=== PATIENT | female | born 1975 | race Caucasian/White ===

== ENCOUNTER 2017-12-23 19:32 | Outpatient (REF) | payer BC, SELFPAY ==
[2017-12-23 20:09] LABS: Anion Gap 11.7 mmol/L (3-11); BUN 13 mg/dL (7-18); CO2 27.3 mmol/L (21.0-32.0); CREATININE 0.64 mg/dL (0.55-1.02); Calcium 9.7 mg/dL (8.5-10.1); Chloride 95 mmol/L (98-107); Glucose 77 mg/dL (70-100); Potassium 3.6 mmol/L (3.5-5.1); Sodium 134 mmol/L (136-145); TSH 3.26 uIU/mL (0.358-3.74)
== END 2017-12-23 19:52 ==
LOC: NCHCN 19:32
PROVIDERS: PCP Physician Assistant Medical; Visit Provider Physician Assistant Medical
DX: R94.6 Abnormal results of thyroid function studies (principal); I10 Essential (primary) hypertension
CPT/HCPCS: 80048; 84443

== ENCOUNTER 2018-12-29 20:31 | Outpatient (REF) | payer BC, SELFPAY ==
[2018-12-29 20:56] LABS: BUN 17 mg/dL (7-18); CREATININE 0.94 mg/dL (0.55-1.02); Calcium 9.5 mg/dL (8.5-10.1); Chloride 97 mmol/L (98-107); Glucose 80 mg/dL (70-100); Potassium 3.8 mmol/L (3.5-5.1); Sodium 136 mmol/L (136-145); TSH 3.13 uIU/mL (0.36-3.74)
== END 2018-12-29 20:51 ==
LOC: NCHCN 20:31
PROVIDERS: PCP Physician Assistant Medical; Visit Provider Physician Assistant Medical
DX: R94.6 Abnormal results of thyroid function studies (principal); I10 Essential (primary) hypertension
CPT/HCPCS: 80048; 84443

== ENCOUNTER 2019-08-01 10:00 | Outpatient (REF) | payer BC, SELFPAY ==
[2019-08-01 20:30] LABS: Hemoglobin A1C 5.9 % (3.8-5.6)
[2019-08-01 20:52] LABS: ALT 32 U/L (14-59); AST 18 U/L (15-37); Albumin 3.9 g/dL (3.4-5.0); Alkaline Phosphatase 76 U/L (46-116); Anion Gap 9.3 mmol/L (3-11); BUN 15 mg/dL (7-18); Bilirubin, Total 0.3 mg/dL (0.2-1.0); CO2 27.7 mmol/L (21.0-32.0); CREATININE 0.77 mg/dL (0.55-1.02); Calcium 8.9 mg/dL (8.5-10.1); Calculated LDL 113 mg/dL (<100); Chloride 100 mmol/L (98-107); Cholesterol 196 mg/dL (<200); Glucose 108 mg/dL (74-106); HDL Cholesterol 38 mg/dL (40-60); Potassium 3.8 mmol/L (3.5-5.1); Sodium 137 mmol/L (136-145); TSH (W/Ref FT4) 2.15 uIU/mL (0.36-3.74); Total Protein 7.1 g/dL (6.4-8.2); Triglyceride 229 mg/dL (<150)
== END 2019-08-01 10:20 ==
LOC: NCHCN 10:00
PROVIDERS: PCP Physician Assistant Medical; Visit Provider Physician Assistant Medical
DX: I10 Essential (primary) hypertension (principal)
CPT/HCPCS: 80053; 80061; 83036; 84443

== ENCOUNTER 2019-09-19 13:27 | Outpatient (REF) | payer BC, SELFPAY ==
[2019-09-19 19:24] LABS: Anion Gap 10.8 mmol/L (3-11); BUN 13 mg/dL (7-18); CO2 28.2 mmol/L (21.0-32.0); Calcium 9.5 mg/dL (8.5-10.1); Chloride 99 mmol/L (98-107); Glucose 126 mg/dL (74-106); Potassium 3.4 mmol/L (3.5-5.1); Sodium 138 mmol/L (136-145)
== END 2019-09-19 13:47 ==
LOC: NCHCN 13:27
PROVIDERS: PCP Physician Assistant Medical; Visit Provider Physician Assistant Medical
DX: I10 Essential (primary) hypertension (principal)
CPT/HCPCS: 80048

== ENCOUNTER 2019-10-11 10:39 | Outpatient (REF) | payer BC, SELFPAY ==
[2019-10-11 19:16] LABS: Anion Gap 10.5 mmol/L (3-11); BUN 16 mg/dL (7-18); CO2 25.5 mmol/L (21.0-32.0); CREATININE 0.74 mg/dL (0.55-1.02); Calcium 9.6 mg/dL (8.5-10.1); Chloride 103 mmol/L (98-107); Glucose 127 mg/dL (74-106); Potassium 3.4 mmol/L (3.5-5.1); Sodium 139 mmol/L (136-145)
[2019-10-11 19:25] LABS: Abs Immature Grans 0.02 10^3/uL (0.0-0.06); Immature Grans % 0.3; Nucleated RBC 0 %; RDW 12.9 % (11.7-14.6)
[2019-10-11 19:26] LABS: Absolute Basophil Count 0.06 10^3/uL (0.0-0.2); Absolute Eosinophil Count 0.11 10^3/uL (0.0-0.7); Absolute Lymphocyte Count 1.78 10^3/uL (1.2-3.4); Absolute Monocyte Count 0.45 10^3/uL (0.1-0.8); Absolute Neutrophil Count 3.61 10^3/uL (1.2-6.7); Eosinophils % 1.8; HCT 44.6 % (36.0-46.0); HGB 14.2 g/dL (11.2-15.7); Lymphocytes % 29.5; MCH 25.6 pg (27.0-33.0); MCHC 31.8 % (32.0-36.0); MCV 80.4 fL (80-95); MPV 11.5 fL (8.0-11.0); Monocytes % 7.5; Neutrophils % 59.9; Platelet Count 352 10^3/uL (130-400); RBC 5.55 10^6/uL (3.93-5.22); RDW-SD 37.1 fL; WBC 6.03 10^3/uL (4.4-10.8)
[2019-10-11 21:37] LABS: ESR 22 mm/hr (0-20)
== END 2019-10-11 10:59 ==
LOC: NCHCN 10:39
PROVIDERS: PCP Physician Assistant Medical; Visit Provider Physician Assistant Medical
DX: R51 Headache (principal)
CPT/HCPCS: 80048; 85652; 85025

== ENCOUNTER 2019-11-14 15:30 | Outpatient (REF) | payer BC, SELFPAY ==
[2019-11-14 20:23] LABS: Anion Gap 12.4 mmol/L (3-11); BUN 20 mg/dL (7-18); CO2 27.6 mmol/L (21.0-32.0); CREATININE 0.76 mg/dL (0.55-1.02); Calcium 9.2 mg/dL (8.5-10.1); Chloride 102 mmol/L (98-107); Glucose 102 mg/dL (74-106); Potassium 3.2 mmol/L (3.5-5.1); Sodium 142 mmol/L (136-145)
[2019-11-14 20:27] LABS: VALPROIC ACID 58.1 ug/mL (50-100)
== END 2019-11-14 15:50 ==
LOC: NCHCN 15:30
PROVIDERS: PCP Physician Assistant Medical; Visit Provider Physician Assistant Medical
DX: E87.1 Hypo-osmolality and hyponatremia (principal); D48.1 Neoplasm of uncertain behavior of connective and other soft tissue; F41.9 Anxiety disorder, unspecified; Z51.81 Encounter for therapeutic drug level monitoring
CPT/HCPCS: 80048; 80164

== ENCOUNTER 2020-01-25 03:19 | Outpatient (CLI) | payer BC, SELFPAY ==
[2020-01-25 14:05] LABS: Hemoglobin A1C 5.4 % (<5.7)
[2020-01-25 14:23] LABS: BUN 15 mg/dL (7-18); Calcium 9.3 mg/dL (8.5-10.1); Chloride 100 mmol/L (98-107); Estimated GFR 38.08 (mL/min/1.73m2); Glucose 89 mg/dL (74-106); Potassium 3.8 mmol/L (3.5-5.1); Sodium 139 mmol/L (136-145)
== END 2020-01-25 03:39 ==
PROVIDERS: PCP Physician Assistant Medical; Visit Provider Physician Assistant Medical
DX: I10 Essential (primary) hypertension (principal); R73.03 Prediabetes; E87.1 Hypo-osmolality and hyponatremia; F41.9 Anxiety disorder, unspecified
CPT/HCPCS: 36415; 80048; 83036

== ENCOUNTER 2020-02-13 02:46 | Outpatient (CLI) | payer BC, SELFPAY ==
[2020-02-13 12:50] LABS: Anion Gap 10.6 mmol/L (3-11); BUN 12 mg/dL (7-18); CO2 24.4 mmol/L (21.0-32.0); Calcium 9.1 mg/dL (8.5-10.1); Chloride 104 mmol/L (98-107); Glucose 115 mg/dL (74-106); Potassium 4.2 mmol/L (3.5-5.1); Sodium 139 mmol/L (136-145)
== END 2020-02-13 03:06 ==
PROVIDERS: PCP Physician Assistant Medical; Visit Provider Physician Assistant Medical
DX: I10 Essential (primary) hypertension (principal); R79.89 Other specified abnormal findings of blood chemistry
CPT/HCPCS: 36415; 80048

== ENCOUNTER 2021-02-12 11:06 | Outpatient (REF) | payer BC, SELFPAY ==
[2021-02-12 12:39] LABS: Hemoglobin A1C 5.7 % (<5.7)
[2021-02-12 12:44] LABS: ALT 24 U/L (14-59); AST 14 U/L (15-37); Albumin 3.9 g/dL (3.4-5.0); Alkaline Phosphatase 98 U/L (46-116); BUN 14 mg/dL (7-18); Bilirubin, Total 0.3 mg/dL (0.2-1.0); CREATININE 0.8 mg/dL (0.55-1.02); Calcium 9.2 mg/dL (8.5-10.1); Calculated LDL 123 mg/dL (<100); Chloride 102 mmol/L (98-107); Cholesterol 190 mg/dL (<200); Glucose 102 mg/dL (74-106); HDL Cholesterol 42 mg/dL (40-60); Potassium 4.8 mmol/L (3.5-5.1); Sodium 138 mmol/L (136-145); Total Protein 7.4 g/dL (6.4-8.2); Triglyceride 129 mg/dL (<150)
== END 2021-02-12 11:07 | disposition home or self-care (01) ==
LOC: NCHCN 11:06
PROVIDERS: PCP Physician Assistant Medical; Visit Provider Physician Assistant Medical
DX: E87.1 Hypo-osmolality and hyponatremia (principal)
CPT/HCPCS: 80053; 80061; 83036

== ENCOUNTER 2021-11-27 21:26 | Outpatient (REF) | payer BC, SELFPAY ==
[2021-11-27 21:42] LABS: ALT 26 U/L (14-59); AST 22 U/L (15-37); Albumin 4.5 g/dL (3.4-5.0); Alkaline Phosphatase 90 U/L (46-116); Anion Gap 11.3 mmol/L (3-11); BUN 11 mg/dL (7-18); Bilirubin, Total 0.3 mg/dL (0.2-1.0); CO2 25.7 mmol/L (21.0-32.0); CREATININE 0.8 mg/dL (0.55-1.02); Calcium 9.7 mg/dL (8.5-10.1); Calculated LDL 130 mg/dL (<100); Chloride 98 mmol/L (98-107); Cholesterol 203 mg/dL (<200); Estimated GFR 93.12 (mL/min/1.73m2); Glucose 86 mg/dL (74-106); HDL Cholesterol 45 mg/dL (40-60); Potassium 3.4 mmol/L (3.5-5.1); Sodium 135 mmol/L (136-145); Total Protein 8.5 g/dL (6.4-8.2); Triglyceride 143 mg/dL (<150)
[2021-11-27 22:10] LABS: Hemoglobin A1C 5.9 % (<5.7)
== END 2021-11-27 21:27 | disposition home or self-care (01) ==
LOC: NCHCN 21:26
PROVIDERS: PCP Physician Assistant Medical; Visit Provider Physician Assistant Medical
DX: I10 Essential (primary) hypertension (principal); R73.03 Prediabetes
CPT/HCPCS: 80053; 80061; 83036

== ENCOUNTER 2022-07-02 17:36 | Outpatient (REF) | payer BC, SELFPAY ==
[2022-07-02 19:40] LABS: Abs Immature Grans 0.01 10^3/uL (0.0-0.06); Absolute Basophil Count 0.08 10^3/uL (0.0-0.2); Absolute Neutrophil Count 4.58 10^3/uL (1.2-6.7); Eosinophils % 2.6; HCT 40.9 % (36.0-46.0); HGB 13.2 g/dL (11.2-15.7); Immature Grans % 0.1; Lymphocytes % 28.7; MCH 25.5 pg (27.0-33.0); MCHC 32.3 % (32.0-36.0); MCV 79 fL (80-95); MPV 11.1 fL (8.0-11.0); Monocytes % 7.8; Neutrophils % 59.8; Platelet Count 351 10^3/uL (130-400); RBC 5.17 10^6/uL (3.93-5.22); RDW 13.7 % (11.7-14.6); RDW-SD 39.7 fL; WBC 7.67 10^3/uL (4.4-10.8)
[2022-07-02 19:53] LABS: ALT 24 U/L (14-59); AST 18 U/L (15-37); Alkaline Phosphatase 72 U/L (46-116); BUN 11 mg/dL (7-18); Bilirubin, Total 0.3 mg/dL (0.2-1.0); CREATININE 0.7 mg/dL (0.55-1.02); Calcium 9.1 mg/dL (8.5-10.1); Chloride 100 mmol/L (98-107); Glucose 103 mg/dL (74-106); Potassium 3.7 mmol/L (3.5-5.1); Sodium 134 mmol/L (136-145); Total Protein 7.8 g/dL (6.4-8.2)
[2022-07-02 19:59] LABS: Hemoglobin A1C 5.7 % (<5.7)
== END 2022-07-02 17:37 | disposition home or self-care (01) ==
LOC: NCHCN 17:36
PROVIDERS: PCP Physician Assistant Medical; Visit Provider Physician Assistant Medical
DX: I10 Essential (primary) hypertension (principal); R73.03 Prediabetes
CPT/HCPCS: 80053; 83036; 85025

== ENCOUNTER 2023-07-14 16:31 | Outpatient (REF) | payer BC, SELFPAY ==
[2023-07-14 19:14] LABS: Abs Immature Grans 0.03 10^3/uL (0.0-0.06); Absolute Lymphocyte Count 2.34 10^3/uL (1.2-3.4); Absolute Neutrophil Count 5.45 10^3/uL (1.2-6.7); Basophils % 1.1 %; Eosinophils % 2.3 %; HCT 41.6 % (36.0-46.0); HGB 13.6 g/dL (11.2-15.7); Immature Grans % 0.3 %; Lymphocytes % 26.8 %; MCHC 32.7 % (32.0-36.0); MCV 80 fL (80-95); MPV 11.3 fL (8.0-11.0); Monocytes % 6.9 %; Neutrophils % 62.6 %; Platelet Count 369 10^3/uL (130-400); RBC 5.23 10^6/uL (3.93-5.22); RDW 13.9 % (11.7-14.6); RDW-SD 40.1 fL; WBC 8.72 10^3/uL (4.4-10.8)
[2023-07-14 19:45] LABS: ALT 26 U/L (14-59); AST 17 U/L (15-37); Albumin 4.2 g/dL (3.4-5.0); Alkaline Phosphatase 85 U/L (46-116); Anion Gap 6.6 mmol/L (3-11); BUN 15 mg/dL (7-18); Bilirubin, Total 0.3 mg/dL (0.2-1.0); CO2 26.4 mmol/L (21.0-32.0); CREATININE 0.8 mg/dL (0.55-1.02); Calcium 9.2 mg/dL (8.5-10.1); Calculated LDL 104 mg/dL (<100); Chloride 103 mmol/L (98-107); Cholesterol 194 mg/dL (<200); Estimated GFR 92.54 (mL/min/1.73m2); Glucose 93 mg/dL (74-106); HDL Cholesterol 50 mg/dL (40-60); Potassium 4.1 mmol/L (3.5-5.1); Sodium 136 mmol/L (136-145); Total Protein 7.5 g/dL (6.4-8.2); Triglyceride 204 mg/dL (<150)
[2023-07-14 19:51] LABS: Hemoglobin A1C 5.8 % (<5.7)
== END 2023-07-14 16:32 | disposition home or self-care (01) ==
LOC: NCHCN 16:31
PROVIDERS: PCP Physician Assistant Medical; Visit Provider Physician Assistant Medical
DX: I10 Essential (primary) hypertension (principal); R73.03 Prediabetes; K76.0 Fatty (change of) liver, not elsewhere classified
CPT/HCPCS: 80053; 80061; 83036; 85025

== ENCOUNTER 2024-04-01 00:44 | Outpatient (CLI) | payer BC, SELFPAY ==
[2024-04-01 15:56] LABS: CREATININE 0.9 mg/dL (0.55-1.02); Estimated GFR 79.85 (mL/min/1.73m2)
== END 2024-04-01 00:45 | disposition home or self-care (01) ==
LOC: LBO 00:46
PROVIDERS: PCP Physician Assistant Medical; Visit Provider Nurse Practitioner
DX: D43.3 Neoplasm of uncertain behavior of cranial nerves (principal)
CPT/HCPCS: 36415; 82565

== ENCOUNTER 2024-09-20 16:21 | Outpatient (REF) | payer BC, SELFPAY ==
[2024-09-20 16:36] LABS: Abs Immature Grans 0.02 10^3/uL (0.0-0.06); HCT 42.8 % (36.0-46.0); HGB 13.9 g/dL (11.2-15.7); Immature Grans % 0.3 %; MCH 25.7 pg (27.0-33.0); MCHC 32.5 % (32.0-36.0); MCV 79 fL (80-95); MPV 11.0 fL (8.0-11.0); Platelet Count 349 10^3/uL (130-400); RBC 5.40 10^6/uL (3.93-5.22); RDW 13.7 % (11.7-14.6); RDW-SD 39.8 fL; WBC 5.80 10^3/uL (4.4-10.8)
[2024-09-20 17:18] LABS: ALT 24 U/L (14-59); AST 16 U/L (15-37); Albumin 4.2 g/dL (3.4-5.0); Alkaline Phosphatase 85 U/L (46-116); Anion Gap 9.1 mmol/L (3-11); BUN 11 mg/dL (7-18); Bilirubin, Total 0.5 mg/dL (0.2-1.0); CO2 25.9 mmol/L (21.0-32.0); Calcium 9.4 mg/dL (8.5-10.1); Calculated LDL 132 mg/dL (<100); Chloride 101 mmol/L (98-107); Cholesterol 212 mg/dL (<200); Estimated GFR 107.95 (mL/min/1.73m2); Glucose 111 mg/dL (74-106); HDL Cholesterol 46 mg/dL (>or=50); Potassium 4.6 mmol/L (3.5-5.1); Sodium 136 mmol/L (136-145); Total Protein 7.6 g/dL (6.4-8.2); Triglyceride 172 mg/dL (<150)
[2024-09-20 19:03] LABS: Hemoglobin A1C 5.4 % (<5.7)
== END 2024-09-20 16:22 | disposition home or self-care (01) ==
LOC: NCHCN 16:21
PROVIDERS: PCP Physician Assistant Medical; Visit Provider Physician Assistant Medical
DX: I10 Essential (primary) hypertension (principal); K76.0 Fatty (change of) liver, not elsewhere classified; R73.03 Prediabetes
CPT/HCPCS: 80053; 80061; 83036; 85025